=== PATIENT | male | born 1955 ===

== ENCOUNTER 2018-01-15 07:44 | Emergency (ER) | payer BC ==
[~2018-01-15] VITALS: Ht 167.6 cm; Wt 63.5 kg
[2018-01-15] MEDS ORDERED: TOPROL XL50 M1 PO (07:54)
[2018-01-15] MEDS ORDERED: ZESTRIL40 M1 PO (07:54)
[2018-01-15] MEDS ORDERED: ZITHROMAX500 MG PO (11:31)
[2018-01-15] MEDS ORDERED: TESSALON PERLE100 M1 PO (11:31)
== END 2018-01-15 11:38 | disposition home or self-care (01) ==
LOC: ER 07:44
DX: R05 Cough (principal)